=== PATIENT | male | born 1945 | race Caucasian/White ===

== ENCOUNTER 2017-08-13 13:40 | Inpatient (IN) | payer OTHER, MEDICAID ==
[2017-08-13] MEDS: SOD CHLORIDE 0.9% 500 ML IV (15:11)
[2017-08-13 15:45] LABS: ADD MAN DIFF? NO
[2017-08-13 15:47] LABS: WHITE BLOOD COUNT 11.2 10^3/ul (4.8-10.8)
[2017-08-13 15:47] LABS: BASOPHIL # 0.1 10^3/ul (0.0-0.1); BASOPHILS % 0.4 % (0.0-2.0); EOSINOPHILS # 0.1 10^3/ul (0.0-0.5); EOSINOPHILS % 0.5 % (0.0-7.0); HEMATOCRIT 45.2 % (42.0-52.0); HEMOGLOBIN 15.2 g/dl (14.0-18.0); LYMPHOCYTES # 1.9 10^3/ul (0.8-2.9); LYMPHOCYTES % 16.7 % (15.0-51.0); MEAN CORPUSCULAR HEMOGLOBIN 31.1 pg (29.0-33.0); MEAN CORPUSCULAR HGB CONC 33.6 g/dl (32.0-37.0); MEAN CORPUSCULAR VOLUME 92.6 fl (82.0-101.0); MEAN PLATELET VOLUME 11.4 fl (7.4-10.4); MONOCYTE # 0.8 10^3/ul (0.3-0.9); MONOCYTES % 6.7 % (0.0-11.0); NEUTROPHIL # 8.4 10^3/ul (1.6-7.5); NEUTROPHILS % 75.4 % (39.0-77.0); PLATELET COUNT 191 10^3/UL (140-415); POSITIVE DIFF @See below; RED BLOOD COUNT 4.88 10^6/ul (4.70-6.10); RED CELL DISTRIBUTION WIDTH 14.3 % (11.5-14.5)
[2017-08-13 16:06] LABS: INR 0.97
[2017-08-13 16:06] LABS: AMMONIA 16 umol/l (9-30)
[2017-08-13 16:40] LABS: ACETAMINOPHEN < 10.0 ug/ml (10.0-30.0); ALANINE AMINOTRANSFERASE 42 IU/L (13-69); ALBUMIN 3.9 g/dl (3.3-4.9); ALBUMIN/GLOBULIN RATIO 1.21; ALKALINE PHOSPHATASE 71 IU/L (42-121); ANION GAP 16 (8-16); ASPARTATE AMINO TRANSFERASE 40 IU/L (15-46); BILIRUBIN,INDIRECT 0.2 mg/dl (0-1.1); BILIRUBIN,TOTAL 0.2 mg/dl (0.2-1.3); BLOOD UREA NITROGEN 27 mg/dl (7-20); CALCIUM 8.8 mg/dl (8.4-10.2); CARBON DIOXIDE 19 mmol/L (21-31); CHLORIDE 114 mmol/L (97-110); CREATININE 0.84 mg/dl (0.61-1.24); ETHANOL < 10.0 mg/dl; GLUCOSE 84 mg/dl (70-220); SALICYLATE < 1.0 mg/dl (5.0-30.0); SODIUM 145 mmol/L (135-144); TOTAL PROTEIN 7.1 g/dl (6.1-8.1)
[2017-08-13 16:51] LABS: TROPONIN-I 0.029 ng/ml (0.00-0.12)
[2017-08-13 18:14] LABS: PARTIAL THROMBOPLASTIN TIME 26.9 Sec (25.0-35.0)
[2017-08-13 18:41] LABS: ADD UMIC NO; UR ASCORBIC ACID NEGATIVE (NEGATIVE); UR BILIRUBIN (Dip) NEGATIVE (NEGATIVE); UR BLOOD (Dip) NEGATIVE (NEGATIVE); UR CLARITY CLEAR (CLEAR); UR COLOR YELLOW (YELLOW); UR GLUCOSE (Dip) NEGATIVE (NEGATIVE); UR KETONES (Dip) 1+ mg/dL (NEGATIVE); UR LEUKOCYTE ESTERASE (Dip) NEGATIVE Leu/ul (NEGATIVE); UR NITRITE (Dip) NEGATIVE (NEGATIVE); UR SPECIFIC GRAVITY (Dip) 1.023 (1.003-1.030); UR TOTAL PROTEIN (Dip) NEGATIVE (NEGATIVE); UR UROBILINOGEN (Dip) NEGATIVE (NEGATIVE)
[2017-08-13 18:56] LABS: AMPHETAMINE/METHAMPHETAMINE Negative (NEGATIVE); BARBITURATES Negative (NEGATIVE); BENZODIAZEPINES Negative (NEGATIVE); CANNABINOIDS Negative (NEGATIVE); COCAINE Negative (NEGATIVE); OPIATES Negative (NEGATIVE)
[2017-08-13] MEDS ORDERED: ONDANSETRON 4 MG INJ IV ×2 (19:30→21:00)
[2017-08-13] MEDS ORDERED: ACETAMINOPHEN 325 MG TAB PO (19:30)
[2017-08-13] MEDS ORDERED: NACL 0.9% 3 ML SYG IV (21:00)
[2017-08-13] MEDS ORDERED: ACETAMINOPHEN 650 MG SUPP PR (21:00)
[2017-08-13 22:04] LABS: CREATINE KINASE 342 IU/L (23-200)
[2017-08-13 22:16] LABS: TROPONIN-I 0.045 ng/ml (0.00-0.12)
[2017-08-13 22:17] LABS: CK-MB 3.29 ng/ml (0.0-2.4)
[2017-08-13] MEDS: SOD CHLORIDE 0.9% 1,000 ML IV (23:01)
[2017-08-14 02:36] LABS: ADD MAN DIFF? NO
[2017-08-14 02:42] LABS: WHITE BLOOD COUNT 8.7 10^3/ul (4.8-10.8)
[2017-08-14 02:42] LABS: BASOPHILS % 0.3 % (0.0-2.0); EOSINOPHILS # 0.1 10^3/ul (0.0-0.5); EOSINOPHILS % 1.1 % (0.0-7.0); HEMATOCRIT 42.5 % (42.0-52.0); HEMOGLOBIN 14.1 g/dl (14.0-18.0); LYMPHOCYTES # 2.3 10^3/ul (0.8-2.9); LYMPHOCYTES % 26.2 % (15.0-51.0); MEAN CORPUSCULAR HEMOGLOBIN 30.9 pg (29.0-33.0); MEAN CORPUSCULAR HGB CONC 33.2 g/dl (32.0-37.0); MONOCYTE # 0.9 10^3/ul (0.3-0.9); MONOCYTES % 10.4 % (0.0-11.0); NEUTROPHIL # 5.4 10^3/ul (1.6-7.5); NEUTROPHILS % 61.8 % (39.0-77.0); PLATELET COUNT 254 10^3/UL (140-415); RED BLOOD COUNT 4.57 10^6/ul (4.70-6.10); RED CELL DISTRIBUTION WIDTH 13.9 % (11.5-14.5)
[2017-08-14 02:52] LABS: HEMOGLOBIN A1C 5.6 % (0-5.9)
[2017-08-14 02:59] LABS: ALANINE AMINOTRANSFERASE 49 IU/L (13-69); ALBUMIN 3.9 g/dl (3.3-4.9); ALBUMIN/GLOBULIN RATIO 1.25; ALKALINE PHOSPHATASE 68 IU/L (42-121); ANION GAP 13 (8-16); ASPARTATE AMINO TRANSFERASE 36 IU/L (15-46); BILIRUBIN,INDIRECT 0.3 mg/dl (0-1.1); BILIRUBIN,TOTAL 0.3 mg/dl (0.2-1.3); BLOOD UREA NITROGEN 25 mg/dl (7-20); CALCIUM 8.9 mg/dl (8.4-10.2); CARBON DIOXIDE 24 mmol/L (21-31); CHLORIDE 114 mmol/L (97-110); CHOL/HDL RATIO 3.1 RATIO; CHOLESTEROL 148 mg/dl (100-200); CREATININE 0.79 mg/dl (0.61-1.24); GLUCOSE 98 mg/dl (70-220); HDL CHOLESTEROL 47 mg/dl (31-75); LDL CHOLESTEROL,CALCULATED 80 mg/dl; MAGNESIUM 2.1 mg/dl (1.7-2.5); POTASSIUM 4.1 mmol/L (3.5-5.1); SODIUM 147 mmol/L (135-144); TRIGLYCERIDES 107 mg/dl (0-149)
[2017-08-14 03:00] LABS: CREATINE KINASE 361 IU/L (23-200)
[2017-08-14 03:12] LABS: CK INDEX 0.9; TROPONIN-I 0.032 ng/ml (0.00-0.12)
[2017-08-14 03:13] LABS: CK-MB 3.21 ng/ml (0.0-2.4)
[2017-08-14] MEDS: DEXTROSE 5%-0.45% NACL 1,000 ML IV ×2 (05:43→17:09)
[2017-08-14] MEDS ORDERED: HALOPERIDOL 5 MG INJ IM (20:43)
[2017-08-14] MEDS ORDERED: LORAZEPAM 2 MG INJ IV (20:44)
[2017-08-14] MEDS: HALOPERIDOL 5 MG INJ IM (21:01)
[2017-08-16 23:16] LABS: RAPID PLASMA REAGIN NONREACTIVE (NR)
[2017-08-19] MEDS: THIAMINE 100 MG TAB PO (20:18)
[2017-08-20] MEDS: THIAMINE 100 MG TAB PO ×3 (08:31→20:10)
[2017-08-21] MEDS: THIAMINE 100 MG TAB PO ×3 (08:17→20:07)
[2017-08-22] MEDS: THIAMINE 100 MG TAB PO ×3 (08:42→20:06)
[2017-08-23] MEDS: THIAMINE 100 MG TAB PO ×3 (08:25→21:36)
[2017-08-24] MEDS: THIAMINE 100 MG TAB PO ×3 (09:11→20:44)
[2017-08-24 14:42] LABS: ADD MAN DIFF? NO
[2017-08-24 14:44] LABS: BASOPHILS % 0.5 % (0.0-2.0); EOSINOPHILS # 0.2 10^3/ul (0.0-0.5); HEMATOCRIT 45.6 % (42.0-52.0); HEMOGLOBIN 14.8 g/dl (14.0-18.0); LYMPHOCYTES # 2.2 10^3/ul (0.8-2.9); LYMPHOCYTES % 27.9 % (15.0-51.0); MEAN CORPUSCULAR HEMOGLOBIN 31.2 pg (29.0-33.0); MEAN CORPUSCULAR HGB CONC 32.5 g/dl (32.0-37.0); MEAN PLATELET VOLUME 10.1 fl (7.4-10.4); MONOCYTE # 0.8 10^3/ul (0.3-0.9); MONOCYTES % 10.4 % (0.0-11.0); NEUTROPHIL # 4.7 10^3/ul (1.6-7.5); NEUTROPHILS % 58.8 % (39.0-77.0); PLATELET COUNT 251 10^3/UL (140-415); RED BLOOD COUNT 4.75 10^6/ul (4.70-6.10); RED CELL DISTRIBUTION WIDTH 13.8 % (11.5-14.5)
[2017-08-24 15:06] LABS: ANION GAP 14 (8-16); BLOOD UREA NITROGEN 25 mg/dl (7-20); CALCIUM 9.5 mg/dl (8.4-10.2); CARBON DIOXIDE 26 mmol/L (21-31); CHLORIDE 108 mmol/L (97-110); CREATININE 0.86 mg/dl (0.61-1.24); GLUCOSE 111 mg/dl (70-220); POTASSIUM 4.6 mmol/L (3.5-5.1); SODIUM 143 mmol/L (135-144)
[2017-08-25] MEDS: THIAMINE 100 MG TAB PO ×3 (09:54→20:08)
[2017-08-26] MEDS: THIAMINE 100 MG TAB PO ×3 (09:07→20:06)
[2017-08-27] MEDS: THIAMINE 100 MG TAB PO ×3 (09:42→20:18)
[2017-08-28] MEDS: THIAMINE 100 MG TAB PO ×2 (08:49→12:23)
== END 2017-08-28 17:15 | DRG 70 ==
LOC: MS4 19:08 → PP2 08-16 01:41 → E/R 13:40
PROVIDERS: Family Medicine
DX: G93.89 Other specified disorders of brain (principal); G93.40 Encephalopathy, unspecified; E87.0 Hyperosmolality and hypernatremia; R55 Syncope and collapse; E66.9 Obesity, unspecified; Z68.31 Body mass index [BMI] 31.0-31.9, adult; I10 Essential (primary) hypertension; E11.9 Type 2 diabetes mellitus without complications; F03.90 Unspecified dementia, unspecified severity, without behavioral disturbance, psychotic disturbance, mood disturbance, and anxiety; I48.91 Unspecified atrial fibrillation; F10.20 Alcohol dependence, uncomplicated; Y90.0 Blood alcohol level of less than 20 mg/100 ml; Z95.0 Presence of cardiac pacemaker; Z87.891 Personal history of nicotine dependence
CPT/HCPCS: 36415; 70450; 70553; 71045; 80048; 80053; 80061; 80306; 80307; 81003; 82140; 82550; 82553; 82607; 82962; 83036; 83735; 84443; 84484; 85025; 85610; 85730; 86592; 92610; 93005; 93306; 93880; 97110; 97116; 97162; 97165; 97530; 97535; 99291-25